=== PATIENT | male | born 1980 | race Two or more races ===

== ENCOUNTER → 2024-09-03 | Outpatient (CLI) | payer OTHER, SELFPAY ==
[2024-09-03 09:51] LABS: Collection Type, Urine Clean Catch; Squamous Epithelial Cell,Urine 0 /hpf (0-5)
[2024-09-03 10:15] LABS: Basophils # (Auto) 0.1 Thou/mm3 (0.0-0.2); Basophils % (Auto) 1 % (0-2.5); Eosinophils # (Auto) 0.3 Thou/mm3 (0.0-0.5); Eosinophils % (Auto) 5 % (0-10); Hematocrit 43.9 % (41.0-53.0); Hemoglobin 15.4 g/dL (13.5-16.0); Immature Granulocytes % (Auto) 0 % (0-0); Immature Granulocytes Auto 0.01 Thou/mm3 (0.00-0.00); Lymphocytes # (Auto) 1.9 Thou/mm3 (1.0-4.8); Lymphocytes % (Auto) 34 % (10-50); Mean Corpuscular HGB Conc 35.1 g/dl (31.0-37.0); Mean Corpuscular Hemoglobin 30.5 pg (25.0-35.0); Mean Corpuscular Volume 87 fL (80-100); Monocytes # (Auto) 0.5 Thou/mm3 (0.0-0.8); Monocytes % (Auto) 9 % (0-12); Neutrophils # (Auto) 2.9 Thou/mm3 (1.8-7.7); Neutrophils % (Auto) 52 % (37-80); Nucleated Red Blood Cell % 0 /100 WBC (0); Platelet Count 222 Thou/mm3 (140-440); RDW Standard Deviation 39.9 fL (35.1-43.9); Red Blood Count 5.05 Miln/mm3 (4.50-5.90); White Blood Count 5.6 Thou/mm3 (3.8-10.6)
[2024-09-03 10:30] LABS: Bilirubin,Urine Negative (Negative); Blood,Urine Negative (Negative); Clarity,Urine Clear (Clear/Hazy); Color,Urine Yellow (Lt Yel-Yel); Glucose, Urine Negative (Negative); Ketones,Urine Negative (Negative); Leukocyte Esterase,Urine Negative (Negative); Nitrite,Urine Negative (Negative); PH,Urine 6.5 (5.0-7.0); Protein,Urine Trace (Neg - Trace); RBC,Urine 4 /hpf (0-3); Specific Gravity,Urine 1.028 (1.001-1.035); Urobilinogen,Urine Negative mg/dL (0.0-1.0); WBC,Urine 1 /hpf (0-5)
[2024-09-03 10:33] LABS: Prostate Specific Antigen 0.98 ng/mL (0-4.00)
[2024-09-03 10:35] LABS: Glucose Estimated Average 105 mg/dL (80-131); Hemoglobin A1C 5.3 % Hgb (4.8-6.0)
[2024-09-03 10:38] LABS: Vitamin B12 624 pg/mL (211-911); Vitamin D 25 Hydroxy Total 20.3 ng/mL (7.3-40.2)
[2024-09-03 10:49] LABS: Alanine Aminotransferase 64 U/L (10-49); Albumin, Serum 4.2 gm/dL (3.5-5.0); Albumin/Globulin Ratio 1.7 (1.2-2.2); Anion Gap 8 (7-16); Aspartate Amino Transferase 31 U/L (0-34); BUN/Creatinine Ratio 16 Ratio (12-20); Bilirubin,Total 0.6 mg/dL (0.3-1.2); Blood Urea Nitrogen 16 mg/dL (9-23); Calcium 9.3 mg/dL (8.3-10.6); Calcium (Corrected) 9.3 mg/dL (8.5-10.1); Carbon Dioxide 28.3 mMol/L (20.0-31.0); Cardiac Risk Estimate 4.6 RATIO (4.0-6.7); Chloride 103 mMol/L (98-107); Cholesterol 198 mg/dL (132-200); Globulin 2.5 gm/dL (2.3-3.5); Glucose 98 mg/dL (74-106); HDL Cholesterol 43 mg/dL (40-60); LDL Cholesterol,Calculated 107 mg/dL (0-130); Osmolality,Calculated 278 (275-295); Potassium 4.4 mMol/L (3.4-5.1); Sodium 139 mMol/L (136-145); Total Protein 6.7 gm/dL (5.7-8.2); Triglycerides 238 mg/dL (30-150); Uric Acid 7.6 mg/dL (3.7-9.2); eGFR > 60 See Note
[2024-09-03 13:07] LABS: Alkaline Phosphatase 55 U/L (46-116)
[2024-09-03 13:58] LABS: Thyroid Stimulating Hormone 0.74 uIU/mL (0.55-4.78)
== END | disposition home or self-care (01) ==
LOC: COPL 09:13
PROVIDERS: PCP Internal Medicine; Referring Provider Internal Medicine; Visit Provider Internal Medicine
DX: Z00.00 Encounter for general adult medical examination without abnormal findings (principal)
CPT/HCPCS: 36415; 80053; 80061; 81001; 82306; 82607; 83036; 84153; 84443; 84550; 85025

== ENCOUNTER → 2024-10-18 | Outpatient (CLI) | payer OTHER, SELFPAY ==
[2024-10-23 06:47] LABS: Renin Activity, Plasma* 11.82 ng/mL/h (0.25-5.82)
[2024-10-23 06:52] LABS: Aldosterone* 3 ng/dL
== END | disposition home or self-care (01) ==
PROVIDERS: PCP Internal Medicine; Referring Provider Internal Medicine Cardiovascular Disease; Visit Provider Internal Medicine Cardiovascular Disease
DX: I20.89 Other forms of angina pectoris (principal); I10 Essential (primary) hypertension; I15.0 Renovascular hypertension
CPT/HCPCS: 36415; 82088; 84244